=== PATIENT | male | born 1995 | race Two or more races ===

== ENCOUNTER 2016-11-04 12:07 | Emergency (ER) | payer BC ==
[~2016-11-04] VITALS: Ht 180.3 cm; Wt 75.9 kg
[2016-11-04 17:01] VITALS: BP 135/84
== END 2016-11-04 17:11 | disposition home or self-care (01) ==
LOC: EME 12:07
DX: S93.05XA Dislocation of left ankle joint, initial encounter (principal); W19.XXXA Unspecified fall, initial encounter; Y93.67 Activity, basketball
CPT/HCPCS: 73610; 99281; 99284